=== PATIENT | female | born 1980 | race Two or more races ===

== ENCOUNTER 2022-06-15 11:16 | Outpatient (CLI) | payer OTHER | END 2022-06-15 11:34 | disposition home or self-care (01) | LOC: SONOGRAMA 11:16 | PROVIDERS: ATTEND Plastic Surgery | DX: N60.11 Diffuse cystic mastopathy of right breast (principal) ==

== ENCOUNTER 2022-06-25 13:17 | Outpatient (CLI) | payer OTHER | END 2022-06-25 13:33 | disposition home or self-care (01) | LOC: MAMO-SONO 13:17 | PROVIDERS: ATTEND General Practice | DX: N64.2 Atrophy of breast (principal) ==